=== PATIENT | female | born 1975 | race Caucasian/White ===

== ENCOUNTER → 2017-04-05 07:55 | Outpatient (CLI) | payer BC, SELFPAY ==
--- NOTE | 2017-04-05 07:59 | HPBI_ITS ---
MAMMOGRAPHY - BILATERAL SCREENING REASON FOR EXAM: Female, 41 years old. Routine annual screening examination. PERTINENT HISTORY: Non-contributory. TECHNIQUE: Digital bilateral breast prisca (3D mammographic acquisition) in the CC and MLO projections. 2-D mediolateral oblique (MLO) and craniocaudad (CC) views of both breasts were obtained. CAD: Full Field Digital Mammography with Computer Added Detection was performed. COMPARISON: Comparison is made with prior study dated March 19, 2016 and February 27, 2015. FINDINGS: Breast Composition: The breasts are heterogeneously dense, which may obscure small masses. There are no dominant masses or suspicious calcifications. No other significant abnormalities are identified. There has been no significant change since the prior study. HPBI/SCREENING MAMM (CAD), BILAT IMPRESSION: Stable bilateral screening mammogram. Yearly follow-up mammogram recommended. (A) ASSESSMENT CATEGORY: BIRADS Category 1: Negative. A letter regarding these results will be sent to the patient by the facility within 30 days. Approximately 10% of breast cancers are not detected by mammography. A normal mammogram should not delay biopsy of a clinically suspicious abnormality. [id number] Electronically Signed: Francisco Javier Carreno MD at 9:36 EST Tel [phone], Service support ,
== END ==
PROVIDERS: Visit Provider Obstetrics & Gynecology
DX: Z12.31 Encounter for screening mammogram for malignant neoplasm of breast (principal)
CPT/HCPCS: 77063; 77067

== ENCOUNTER → 2018-05-08 10:32 | Outpatient (CLI) | payer BC, SELFPAY ==
--- NOTE | 2018-05-08 10:36 | BI_ITS ---
MAMMOGRAPHY - BILATERAL SCREENING REASON FOR EXAM: Female, 42 years old. Routine annual screening examination. PERTINENT HISTORY: NO FM HX , CURRENT IUD SINCE 09/2015 NO SX TECHNIQUE: Digital bilateral breast prisca (3D mammographic acquisition) in the CC and MLO projections. 2-D mediolateral oblique (MLO) and craniocaudad (CC) views of both breasts were obtained. CAD: Full Field Digital Mammography with Computer Added Detection was performed. COMPARISON: 04/05/2017 and 08/17/2016 and 02/27/2015 FINDINGS: Breast Composition: The breasts are heterogeneously dense, which may obscure small masses. There are no dominant masses or suspicious calcifications. No other significant abnormalities are identified. BI/SCREENING MAMM (CAD), BILAT IMPRESSION: Stable bilateral screening mammogram. Yearly follow-up mammogram recommended. (A) ASSESSMENT CATEGORY: BIRADS Category 3: Probably Benign - Short-Interval Follow-up Suggested. A letter regarding these results will be sent to the patient by the facility within 30 days. Approximately 10% of breast cancers are not detected by mammography. A normal mammogram should not delay biopsy of a clinically suspicious abnormality. [id number] Electronically Signed: Melquiades Elizalde, at 11:08 EDT Tel , Service support ,
== END ==
PROVIDERS: Visit Provider Obstetrics & Gynecology
DX: Z12.31 Encounter for screening mammogram for malignant neoplasm of breast (principal)
CPT/HCPCS: 77063; 77067

== ENCOUNTER 2018-07-20 14:40 | Observation (INO) | payer BC, SELFPAY ==
--- NOTE | 2018-07-20 10:42 | CT_ITS ---
STUDY: CT ABDOMEN AND PELVIS WITH CONTRAST REASON FOR EXAM: Female, 42 years old. 3 day history of lower abdominal pain. RADIATION DOSAGE (If Supplied By Facility): CTDIvol = ( 10.87 ) mGy, DLP = ( 413.89 ) mGycm TECHNIQUE: Transaxial images were obtained from the dome of the diaphragm to the symphysis pubis with oral contrast. 100CC IV/Oral Isovue 250 was administered. Sagittal and coronal images were reconstructed. Individualized dose optimization techniques were used for this CT. COMPARISON: None. FINDINGS: The visualized lung bases are unremarkable. The visualized portions of the heart are within normal limits. Normal liver. Normal gallbladder and extrahepatic biliary system. Normal spleen. Normal pancreas. Normal bilateral adrenal glands. Normal right kidney. Normal left kidney. There is a small hiatal hernia. Normal small intestine. Normal colon. There is a tubular, thick-walled appendix (>7mm), consistent with acute appendicitis. Normal abdominal aorta. Normal inferior vena cava. Normal retroperitoneum. Normal urinary bladder. There is a 2.4 cm x 1.7 cm cyst in the left ovary. Follicles are seen in the right ovary. IUD is seen within the uterus. There is a small umbilical hernia containing fat. Normal osseous structures. CT/Abdomen/Pelvis WITH Contrast IMPRESSION: Findings in keeping with acute appendicitis. No focal abscess is seen. Left ovarian cyst. Electronically Signed: Francisco Javier Carreno, at 13:36 EDT , Service support ,
[2018-07-20 11:02] LABS: ALB/GLOB Ratio 0.9 RATIO (0.9-2.4); AST(SGOT) 13 U/L (15-37); Alanine Aminotransfer ALT/SGPT 18 U/L (13-56); Albumin, Serum 3.5 g/dL (3.2-5.0); Alkaline Phosphatase 48 U/L (45-117); Anion Gap 6 (5-15); BUN 8 mg/dL (7-18); BUN/Creat Ratio 9.2 RATIO (10-20); Calcium,Total 8.6 mg/dL (8.5-10.1); Chloride 107 mmol/L (98-107); Creatinine, Serum 0.86 mg/dL (0.55-1.02); EST Glomerular Filtration Rate 76 mL/min (>60); Est Glom Filt Rate - Afr Amer 92 mL/min (>60); Globulin 4.1 g/dL (2.2-4.2); Glucose 91 mg/dL (74-106); Protein, Total 7.6 g/dL (6.4-8.2); Sodium Level 141 mmol/L (136-145)
[2018-07-20 15:14] VITALS: BMI 21.9
--- NOTE | 2018-07-20 15:16 | PCM.HP.STD ---
History of Present Illness Date of Admission: 07/20/18 The patient is a 42 year old F was directed admitted after having a CT a/p c/w acute appendicitis. Pt started to have generalized abdominal pain Tues evening 8-10/31- thought it was gas pain. Pt went to urgent care [facility] Wed AM and they also thought it was gas pain and suggested gas-x which didn't help. Today she had a CT a/p as outpatient. denies N/V, last ate at 8am today egg/bagel/grapefruit, has RLQ pain 4-06/30, +BM this AM looser. CBC pending Past Medical History Allergies No Known Allergies Allergy (Verified 12/25/12 10:07) Home Medications: Ambulatory Orders Medication Instructions Recorded Cetirizine HCl [Zyrtec] 10 mg PO DAILY 07/20/18 Surgical History: - - csections x 3, tubal Psychiatric History: No pertinent psych hx DIRECTOR NURSES' REGISTRY History: No pertinent DIRECTOR NURSES' REGISTRY history Lives: Spouse/ Significant Other Smoking Status: Never smoker - *Family History Maternal History Items: No pertinent history Review of Systems Constitutional: Denies: Anorexia, Chills HEENT: Denies: Difficulty Swallowing Cardiovascular: Denies: Chest Pain Respiratory: Denies: Cough Gastrointestinal: Reports: Abdominal Pain. Denies: Nausea, Vomiting VTE Information - Inpt Only VTE Present on Admission: Yes VTE Mechan Device Prophylaxis: SCD's VTE Pharm Prophylaxis ordered?: No - Physical Exam General: Alert, Oriented x3, Cooperative, No apparent distress HEENT: Atraumatic Lungs: Normal air movement Cardiovascular: Regular rate Abdomen: Soft, Non-Distended, Tender - RLQ, no PS, Hernia - umbilical -reducible Laboratory Tests Past 24 Hrs 07/20/18 10:33 Sodium 141 Potassium 4.0 Chloride 107 Carbon Dioxide 28.0 Anion Gap 6 BUN 8 Creatinine 0.86 Est GFR (MDRD) Af Amer 92 Est GFR (MDRD) Non-Af 76 BUN/Creatinine Ratio 9.2 L Glucose 91 Calcium 8.6 Total Bilirubin 0.90 AST 13 L ALT 18 Alkaline Phosphatase 48 Total Protein 7.6 Albumin 3.5 Globulin 4.1 Albumin/Globulin Ratio 0.9 Assessment/Plan 42 y/o F with acute appendicitis 1. D/w pt and her the procedure- laparoscopic appendectomy, possible bowel resection, possible open. including risks but not limited to bleeding, infection/abscess, injury to another organ- (colon/SB, etc), hernia at incision sites, etc. Pt and her 's questions were answered and they had no further questions at this time.
[2018-07-20 15:24] VITALS: BMI 21.9
[2018-07-20 15:28] VITALS: BP 108/64; PULSE 84; RESP 16; TEMP 37; O2SAT 96
[2018-07-20 15:59] LABS: Absolute Lymphocyte Count 1.26 X10^3/ul (0.83-4.51); Basophil# 0.03 X10^3/uL; Basophil% 0.3 % (0-1); Eosinophil# 0.13 X10^3/uL; Eosinophils% 1.4 % (0-5); Hematocrit 39.2 % (37-47); Hemoglobin 13.7 g/dl (12.0-15.0); Lymphocyte # 1.26 X10^3/ul (4.0); Lymphocyte % 13.9 % (19-41); Mean Corp Hgb Conc 34.9 g/gl (32-36); Mean Corpuscular Hgb 31.3 pg (27.0-32.0); Mean Corpuscular Volume 89.5 fL (81-99); Monocyte# 0.57 X10^3/uL; Monocyte% 6.3 % (0-10); Neutrophil # 7.02 X10^3/uL (2.7-7.7); Neutrophil % 77.7 % (47-70); Platelet Count 214 K/mm3 (150-450); RBC Distribution Width CV 12.1 % (11.6-14.6); Red Blood Count 4.38 M/mm3 (4.2-5.4); White Blood Count 9.1 K/mm3 (4.4-11.0)
[2018-07-20 16:03] LABS: POSITIVE COUNT NO; POSITIVE DIFFERENTIAL NO; POSITIVE MORPHOLOGY NO
[2018-07-20 16:25] VITALS: O2SAT 98
[2018-07-20 16:37] LABS: Internal QC Validated? YES +Cl - CLEAR BKGD; Pregnancy, Urine Negative Negative
[2018-07-20] MEDS: Lactated Ringers 1,000 ML 125 ML IV ×2 (17:07→23:05)
[2018-07-20 19:24] VITALS: BP 105/61; PULSE 84; RESP 16; TEMP 36.8; O2SAT 100; BMI 21.9
--- NOTE | 2018-07-20 22:00 | APP_PTH ---
PATIENT: SORAYA PHILLIPS LOC: [facility] U#:[id number] AGE/SX: 42/F ROOM: [facility]314 RE07/20/[address]: Dr. Bailey Rojas MD : 1975 BED: 1 DIS: 07/21/2018 SPEC #: [id number] RECD: 07/21/18 08:06 STATUS: DANYELL REQ #: [id number] CHRISTINA: 07/20/18 22:[address]: Bailey Rojas DEPT: SURGICAL PATHOLOGY RECD BY: Keo Agrawal ENTERED: 07/21/18 14:27 SP TYPE: APPENDIX ANNE DR: DO Yaritza Mcleod, NUCLEAR RADIATION ENGINEER-C Tissues: Appendix, NOS Procedures: Surgery Specimen Level III HEADER OPERATION: Laparoscopic appendectomy PRE-OP DIAGNOSIS: Appendicitis TISSUE SUBMITTED: Appendix MICROSCOPIC DIAGNOSIS Appendix, appendectomy: Acute appendicitis. Acute serositis. AM:palomo 07/24/18 MICROSCOPIC DESCRIPTION Slides are reviewed. GROSS DESCRIPTION Received is one container labeled with the patient's name and designated appendix. The specimen consists of an appendix measuring 8.5 cm in length and up to 0.7 cm in diameter. No obvious perforation is identified. The lumen is patent. Refinisher sections are submitted in one cassette. / AM:palomo 07/21/18 TC:2 CPT: [id number]
[2018-07-20 22:40] VITALS: BP 123/78; PULSE 88; RESP 16; TEMP 37.1; O2SAT 100; BMI 21.9
--- NOTE | 2018-07-20 22:50 | NURSING ---
unsure if Zosyn was supposed to be started on the floor or if it should be started on the floor. Talked to PACU nurse that was taking the pt and she said she would take it down with the pt.
[2018-07-21] VITALS (7 sets, daily range): BP systolic 101–123; BP diastolic 50–78; PULSE 66–108; RESP 16; TEMP 36.6–37.1; O2SAT 98–100
[2018-07-21] MEDS: Bupivacaine Mpf 0.5% 30 ML VIAL (00:40)
--- NOTE | 2018-07-21 00:45 | PCM.OPRPT ---
Report of Operation Date of Procedure: 07/21/18 Pre-Operative Diagnosis: Acute appendicitis, umbilical hernia Post-Operative Diagnosis: Same Surgery/Procedure Performed:: Laparoscopic appendectomy, primary repair of umbilical hernia Type of Anesthesia:: General/Supplemental Anesthesiologist: Jacob Galicia Special Medications: Ancef 2 g IV x1, patient previously had Zosyn 3.375g IV on the floor for acute appendicitis Specimen's removed: Appendix Estimated Blood Loss (mL): < 10 cc Fluids Replaced: 500 cc Description of Procedure: Indications: 42-year-old female presented to the right lower quadrant pain and outpatient CT abdomen pelvis showed acute appendicitis and leukocytosis of 9 with left shift. Patient was started on antibiotics on the floor for acute appendicitis Zosyn 3.375 g IV x1. Description of the procedure: The patient was placed on operating table in supine position. General anesthesia was induced. A timeout was completed verifying correct patient, procedure, position and special equipment prior to beginning procedure. A Thompson catheter was placed. Abdomen was prepped and draped in usual sterile fashion. Curvilinear incision was made below the umbilicus with a 15 blade scalpel. Hemostat was used to go around the stalk of the umbilicus. The umbilicus was divided from the hernia with Metzenbaum scissors. The fascial defect was 1.2 cm x 1.2 cm. Entry into the peritoneum was confirmed visually and no bowel was noted in the vicinity of the incision. The Arnett trocar was placed under direct vision. Abdomen insufflated with a pressure of 12-15 mmHg. Patient tolerated insertion well. The scope was inserted and the abdomen inspected. No injuries from initial trocar placement were noted. Minimal amount of fluid was seen in the right lower quadrant. Under direct visualization 2 -5 mm trocars were placed one above the symphysis pubis and below the hairline and one in the left lower quadrant lateral to the rectus muscle. Care is taken to avoid injury to the bladder and inferior epigastric vessels. The table was placed in Trendelenburg position with the right side elevated. The appendix was grasped with atraumatic grasper and elevated. It was noted to be inflamed. A window was developed in the mesoappendix at the point between the base of the appendix and the cecum. An endoscopic 45 mm linear cutting stapler blue load was then used to divide and staple the base of the appendix. Enseal was used to divide the mesoappendix. The appendix was withdrawn into the Arnett trocar after being placed endoscopically retrieval bag. Appendix was sent to pathology. The appendiceal stump was then irrigated and hemostasis was assured. Fluid was suctioned no other pathology was identified. Secondary trochars were removed under direct visualization. No bleeding was noted trocar sites. The laparoscope withdrawn and the umbilical trocar removed. The abdomen was allowed to collapse. Local anesthesia of 10 mL of 0.5% Marcaine was used at the incision sites. The umbilical trocar site was closed with the 2 [id number] 0 Nurolon suture. The skin was closed up to clear sutures of 4-0 Monocryl and Steri-Strips. A cottonball was placed in the umbilicus with a Tegaderm over the top. The patient was extubated. The patient tolerated the procedure well and was taken to the postanesthesia care unit in satisfactory condition. - Complications none
[2018-07-21] MEDS: Acetaminophen 325 MG Tablet 650 MG PO (03:31)
--- NOTE | 2018-07-21 08:05 | PCM.PN.SRG ---
Subjective: Patient is doing well, pain controlled with Tylenol, no nausea or vomiting - Physical Exam General: Alert, Oriented x3, Cooperative, No apparent distress Lungs: Normal air movement Cardiovascular: Regular rate Abdomen: Soft, Non-Distended, Tender - And incision sites, clean dry and intact, no peritoneal signs Extremities: No clubbing, No cyanosis, No edema Vital Signs Temp Pulse Resp BP Pulse Ox 98.8 F 88 16 101/60 99 07/21/18 06:06 07/21/18 06:06 07/21/18 06:06 07/21/18 06:06 07/21/18 06:06 Oxygen Delivery Method Room Air Weight: 123 lb 11.2 oz Body Mass Index (BMI) 21.9 Intake and Output for Last 24 Hours 07/19/18 07/20/18 07/21/18 23:59 23:59 23:59 Intake Total 849 / 849 Output Total 900 / 900 Balance -51 / -51 Laboratory Tests Past 24 Hrs 07/20/18 07/20/18 07/20/18 10:33 15:00 15:45 WBC 9.1 RBC 4.38 Hgb 13.7 Hct 39.2 MCV 89.5 MCH 31.3 MCHC 34.9 RDW 12.1 RDW Differential 39.0 Plt Count 214 MPV 11.0 Immature Gran % (Auto) 0.400 Neut % (Auto) 77.7 H Lymph % (Auto) 13.9 L [place] % (Auto) 6.3 Eos % (Auto) 1.4 Baso % (Auto) 0.3 Absolute Neuts (auto) 7.0 Absolute Lymphs (auto) 1.26 Total Counted Not Reportable Sodium 141 Potassium 4.0 Chloride 107 Carbon Dioxide 28.0 Anion Gap 6 BUN 8 Creatinine 0.86 Est GFR (MDRD) Af Amer 92 Est GFR (MDRD) Non-Af 76 BUN/Creatinine Ratio 9.2 L Glucose 91 Calcium 8.6 Total Bilirubin 0.90 AST 13 L ALT 18 Alkaline Phosphatase 48 Total Protein 7.6 Albumin 3.5 Globulin 4.1 Albumin/Globulin Ratio 0.9 Urine Test Negative Medical Necessity - Tobacco Use Smoking Status: Never smoker Assessment/Plan Postop 1 day status post lap scopic appendectomy 1. Patient on a regular diet this morning. If tolerates may be DC'd home. Patient's pain is controlled with Tylenol. Bailey Robotham, M.D. Pager: [phone] [facility] [address] [place] [address], [facility], [address] [place] [address] Office: [phone]
--- NOTE | 2018-07-21 08:06 | PCM.DC.APPY ---
Discharge Diet: Light diet - advance as tolerated Discharge Activity: May not drive while taking narcotic pain medications. May shower in (days): 1 - Keep the umbilical dressing on and dry for 5 days Lifting Restrictions: No lifting greater than 20 pounds x 4 weeks, no strenuous exercise for 6 wk Call your doctor if your incision/area has: Continuous Slow Oozing, Sudden Increased Bleeding, Increased Pain/ Swelling, Increased Redness, Foul Smelling Discharge, Swelling at the incision site Call your doctor if you observe: Fever of 101 or Higher Remove Dressing in (days):: 5 Additional Dressing/Incision Instructions:: Keep dressing on the bellybutton for 5 days. Keep clean and dry by covering with Ziploc bag with the edges tape for showers. It is okay to remove dressing but would continue to put either a cotton ball or rolled up gauze in the bellybutton with tape over the top to keep the skin of the bellybutton against the fascia for 2 more days changing daily. Additional Instructions: Okay to take ibuprofen 400-600 mg PO q6hr PRN along with the Percocet. Avoid Tylenol since there is already Tylenol in the Percocet. Take all pain meds with food. Percocet can cause constipation recommend taking daily stool softener (i.e. Colace/docusate) while taking the pain meds. Recommend starting some MiraLAX in 1 to 2 days if no bowel movement. If still no bowel movement the following day recommend taking magnesium citrate half the bottle and waiting 4-6 hours if still no results take the other half the bottle. Medications to take at Discharge Cetirizine HCl [Zyrtec] 10 mg PO DAILY 07/20/18 Oxycodone HCl/Acetaminophen [Percocet 5/325] 1 - 2 tablet PO Q6H PRN PRN 2 Days #10 tablet 07/21/18 Allergies/Adverse Reactions: Allergies No Known Allergies Allergy (Verified 12/25/12 10:07) Primary Care Physician: eDstiny Delacruz DO [Primary Care Provider] - Test Results: Test results from this visit will be discussed in further detail at your follow-up appointment, if applicable. Please Follow Up With: Bailey Rojas MD - After 5:00 on the weekends call [phone] with any concerns When: Call the office for follow-up appointment in 2 weeks [phone] Proposed Discharge Date: 07/21/18
--- NOTE | 2018-07-21 08:11 | DCINST_ITS ---
Discharge Diet: Light diet - advance as tolerated Discharge Activity: May not drive while taking narcotic pain medications. May shower in (days): 1 - Keep the umbilical dressing on and dry for 5 days Lifting Restrictions: No lifting greater than 20 pounds x 4 weeks, no strenuous exercise for 6 wk Call your doctor if your incision/area has: Continuous Slow Oozing, Sudden Increased Bleeding, Increased Pain/ Swelling, Increased Redness, Foul Smelling Discharge, Swelling at the incision site Call your doctor if you observe: Fever of 101 or Higher Remove Dressing in (days):: 5 Additional Dressing/Incision Instructions:: Keep dressing on the bellybutton for 5 days. Keep clean and dry by covering with Ziploc bag with the edges tape for showers. It is okay to remove dressing but would continue to put either a cotton ball or rolled up gauze in the bellybutton with tape over the top to keep the skin of the bellybutton against the fascia for 2 more days changing daily. Additional Instructions: Okay to take ibuprofen 400-600 mg PO q6hr PRN along with the Percocet. Avoid Tylenol since there is already Tylenol in the Percocet. Take all pain meds with food. Percocet can cause constipation recommend taking daily stool softener (i.e. Colace/docusate) while taking the pain meds. Recommend starting some MiraLAX in 1 to 2 days if no bowel movement. If still no bowel movement the following day recommend taking magnesium citrate half the bottle and waiting 4-6 hours if still no results take the other half the bottle. Medications to take at Discharge Cetirizine HCl [Zyrtec] 10 mg PO DAILY 07/20/18 Oxycodone HCl/Acetaminophen [Percocet 5/325] 1 - 2 tablet PO Q6H PRN PRN 2 Days #10 tablet 07/21/18 Allergies/Adverse Reactions: Allergies No Known Allergies Allergy (Verified 12/25/12 10:07) Primary Care Physician: Destiny Delacruz DO [Primary Care Provider] - Test Results: Test results from this visit will be discussed in further detail at your follow- up appointment, if applicable. Please Follow Up With: Bailey Rojsa MD - After 5:00 on the weekends call [phone] with any concerns When: Call the office for follow-up appointment in 2 weeks [phone] Proposed Discharge Date: 07/21/18
[2018-07-21] MEDS: Ibuprofen 200 MG Tablet PO (08:53)
== END 2018-07-21 11:01 | disposition home or self-care (01) ==
PROVIDERS: Physician Assistant; Admitting Provider Surgery; Family Provider Internal Medicine; PCP Internal Medicine; Referring Provider Nurse Practitioner Gerontology; Visit Provider Surgery
PROC: 0DTJ4ZZ Resection of Appendix, Percutaneous Endoscopic Approach (ICD-10-PCS; CPT 44970; principal; 2018-07-20 22:30)
DX: K35.80 Unspecified acute appendicitis (principal); K42.9 Umbilical hernia without obstruction or gangrene
CPT/HCPCS: 00840; 44970; 49652; 36415; 74177; 80053; 81025; 85025; 87086; 87088; 88304; 96360; 96361; 99218; J7120; Q9967; C1760; G0378; G0379; J2405

== ENCOUNTER → 2019-04-05 | Outpatient (CLI) | payer BC, SELFPAY ==
[2019-04-09 14:54] LABS: HPV Reflexed? NOT INDICATED
== END | disposition home or self-care (01) ==
LOC: LABSPEC 13:38
PROVIDERS: PCP Internal Medicine; Visit Provider Obstetrics & Gynecology
DX: Z12.4 Encounter for screening for malignant neoplasm of cervix (principal)
CPT/HCPCS: 88175; G0145

== ENCOUNTER → 2019-05-10 09:58 | Outpatient (CLI) | payer BC, SELFPAY ==
--- NOTE | 2019-05-10 10:02 | BI_ITS ---
MAMMOGRAPHY - BILATERAL SCREENING REASON FOR EXAM: Female, 43 years old. Routine annual screening examination. PERTINENT HISTORY: Non-contributory. TECHNIQUE: Digital bilateral breast lexy (3D mammographic acquisition) in the CC and MLO projections. 2-D mediolateral oblique (MLO) and craniocaudad (CC) views of both breasts were obtained. CAD: Full Field Digital Mammography with Computer Added Detection was performed. COMPARISON: Comparison is made with prior examination of May 08, 2018 April 05, 2017. FINDINGS: Breast Composition: The breasts are heterogeneously dense, which may obscure small masses. There are no dominant masses or suspicious calcifications. No other significant abnormalities are identified. There has been no significant change since the prior study. BI/SCREEN MAMM (CAD) W/LEXY BILAT IMPRESSION: Stable bilateral screening mammogram. Yearly follow-up mammogram recommended. (A) ASSESSMENT CATEGORY: BIRADS Category 1: Negative. A letter regarding these results will be sent to the patient by the facility within 30 days. Approximately 10% of breast cancers are not detected by mammography. A normal mammogram should not delay biopsy of a clinically suspicious abnormality. [id number] Electronically Signed: Francisco Javier Carreno, at 11:03 EDT , Service support ,
== END ==
PROVIDERS: PCP Internal Medicine; Referring Provider Obstetrics & Gynecology; Visit Provider Obstetrics & Gynecology
DX: Z12.31 Encounter for screening mammogram for malignant neoplasm of breast (principal)
CPT/HCPCS: 77063; 77067

== ENCOUNTER → 2020-05-22 10:02 | Outpatient (CLI) | payer BC, SELFPAY ==
--- NOTE | 2020-05-22 10:05 | BI_ITS ---
MAMMOGRAPHY - BILATERAL SCREENING REASON FOR EXAM: Female, 44 years old. Routine annual screening examination. PERTINENT HISTORY: Non-contributory. TECHNIQUE: Digital bilateral breast lexy (3D mammographic acquisition) in the CC and MLO projections. 2-D mediolateral oblique (MLO) and craniocaudad (CC) views of both breasts were obtained. CAD: Full Field Digital Mammography with Computer Added Detection was performed. COMPARISON: Comparison is made with prior study of 05/10/2019 and 05/08/2018. FINDINGS: Breast Composition: There are scattered areas of fibroglandular density. There is an 8.5 mm x 8.4 mm well-defined nodule in the deep central portion of the left breast. Correlation with ultrasound is recommended. No other significant abnormalities are identified. BI/SCRN MAMM (CAD)W/LEXY BILAT IMPRESSION: 8.5 mm x 8.4 mm well-defined nodule in the deep central lateral portion of the left breast. Correlation with ultrasound is recommended. ASSESSMENT CATEGORY: BIRADS Category 0: Incomplete. Need additional imaging evaluation. A letter regarding these results will be sent to the patient by the facility within 30 days. Approximately 10% of breast cancers are not detected by mammography. A normal mammogram should not delay biopsy of a clinically suspicious abnormality. [id number] Electronically Signed: Francisco Javier Carreno MD at 11:46 EDT , Service support ,
== END ==
PROVIDERS: PCP Internal Medicine; Referring Provider Obstetrics & Gynecology; Visit Provider Obstetrics & Gynecology
DX: Z12.31 Encounter for screening mammogram for malignant neoplasm of breast (principal)
CPT/HCPCS: 77063; 77067

== ENCOUNTER → 2020-05-26 10:52 | Outpatient (CLI) | payer BC, SELFPAY ==
--- NOTE | 2020-05-26 10:54 | US_ITS ---
STUDY: ULTRASOUND BREAST - LEFT REASON FOR EXAM: Female, 44 years old. Abnormal mammogram TECHNIQUE: Axial and longitudinal images of the LEFT breast were performed with a high resolution ultrasound transducer. # OF IMAGES: 10 COMPARISON: 05/22/2020 FINDINGS: LEFT Breast: Ultrasound evaluation of the left breast, in the area of concern, at 2 o''clock, 4 cm from the nipple shows a simple 1.0 x 0.9 x 0.6 cm cyst. This corresponds to the palpable abnormality. It is anechoic, with clearly defined borders and posterior enhancement. There is no suspicious shadowing solid lesion, architectural distortion or clustered shadowing calcifications.. US/Breast Limited Unilateral IMPRESSION: Simple benign cysts, no suspicious sonographic findings. Patient can return for screening mammogram in 1 year ASSESSMENT CATEGORY: BIRADS Category 2: Benign. A letter regarding these results will be sent to the patient by the facility within 30 days. Electronically Signed: Mich Ledesma MD at 9:10 EDT , Service support ,
== END ==
PROVIDERS: PCP Internal Medicine; Referring Provider Obstetrics & Gynecology; Visit Provider Obstetrics & Gynecology
DX: N63.21 Unspecified lump in the left breast, upper outer quadrant (principal)
CPT/HCPCS: 76642

== ENCOUNTER 2021-05-20 12:26 | Outpatient (CLI) | payer BC, SELFPAY ==
[2021-05-27 09:30] LABS: HPV Reflexed? NOT INDICATED
== END 2021-05-20 23:59 | disposition home or self-care (01) ==
LOC: LABSPEC 12:27
PROVIDERS: PCP Internal Medicine; Visit Provider Obstetrics & Gynecology
DX: Z12.4 Encounter for screening for malignant neoplasm of cervix (principal)
CPT/HCPCS: 88175; G0145

== ENCOUNTER 2021-05-25 09:02 | Outpatient (CLI) | payer BC, SELFPAY ==
--- NOTE | 2021-05-25 09:05 | BI_ITS ---
MAMMOGRAPHY - BILATERAL SCREENING REASON FOR EXAM: Female, 45 years old. Routine annual screening examination. PERTINENT HISTORY: Non-contributory. TECHNIQUE: Digital bilateral breast lexy (3D mammographic acquisition) in the CC and MLO projections. 2-D mediolateral oblique (MLO) and craniocaudad (CC) views of both breasts were obtained. CAD: Full Field Digital Mammography with Computer Added Detection was performed. COMPARISON: Comparison is made with prior study dated 05/22/2020 and 05/10/2019. FINDINGS: Breast Composition: There are scattered areas of fibroglandular density. There are no dominant masses or suspicious calcifications. The previously seen nodular density in the deep central portion of the left breast has decreased in size. It presently 4 mm. No other significant abnormalities are identified. BI/SCRN MAMM (CAD)W/LEXY BILAT IMPRESSION: Stable bilateral screening mammogram. Yearly follow-up mammogram recommended. (A) ASSESSMENT CATEGORY: BIRADS Category 2: Benign. A letter regarding these results will be sent to the patient by the facility within 30 days. Approximately 10% of breast cancers are not detected by mammography. A normal mammogram should not delay biopsy of a clinically suspicious abnormality. [id number] Electronically Signed: Francisco Javier Carreno MD at 10:16 EDT ,
== END 2021-05-25 23:59 | disposition home or self-care (01) ==
LOC: OPBI 09:03
PROVIDERS: PCP Internal Medicine; Referring Provider Obstetrics & Gynecology; Visit Provider Obstetrics & Gynecology
DX: Z12.31 Encounter for screening mammogram for malignant neoplasm of breast (principal)
CPT/HCPCS: 77063; 77067